=== PATIENT | female | born 1995 | race Caucasian/White ===

== ENCOUNTER 2020-12-30 04:00 | Inpatient (IN) ==
[2020-12-30] MEDS ORDERED: Metoclopramide 10 MG/2 ML VIAL IVP PRN (04:20)
[2020-12-30] MEDS ORDERED: Famotidine 20 MG/2 ML VIAL IVP PRN (04:20)
[2020-12-30] MEDS ORDERED: Ondansetron 4 MG/2 ML VIAL IVP PRN (04:20)
[2020-12-30] MEDS ORDERED: Naloxone 0.4 MG/ML INJ IVP PRN (04:20)
[2020-12-30] MEDS ORDERED: Lidocaine 1% 20 ML MDV INFILT PRN (04:20)
[2020-12-30] MEDS ORDERED: Oxytocin 20 units/ LR 1000 mL 20 UNIT/1,000 ML BAG IVC SCH (04:30)
[2020-12-30 05:01] LABS: Basophils % 0.2 %; Eosinophils # 0.1 K/mcL (0.0-0.6); Eosinophils % 0.6 %; Hematocrit 35.3 % (35.3-44.9); Immature Granulocytes % 0.7 % (0-4); Lymphocytes # 2.5 K/mcL (0.6-4.6); Lymphocytes % 18.9 %; Mean Corpuscular Hemoglobin 32.6 pg (28.0-33.3); Mean Corpuscular Volume 95.9 fL (83.0-100.0); Mean Platelet Volume 11.1 fL (9.4-12.4); Monocytes # 0.9 K/mcL (0.0-1.3); Monocytes % 6.9 %; Neutrophils # 9.8 K/mcL (1.6-8.9); Platelet Count 165 K/mcL (140-400); Red Blood Count 3.68 M/mcL (3.82-4.97); Red Cell Distribution Width 13.2 % (11.5-14.5); Segmented Neutrophils % 72.7 %; White Blood Count 13.4 K/mcL (4.3-11.1)
[2020-12-30 05:10] LABS: Amphetamine Screen,Urine Negative ng/mL (Cutoff=1000); Barbiturate Screen,Urine Negative ng/mL (Cutoff=200); Benzodiazepines Screen,Urine Negative ng/mL (Cutoff=200); Cannabinoid Screen,Urine Negative ng/mL (Cutoff = 50); Cocaine Screen,Urine Negative ng/mL (Cutoff= 300); Opiate Screen,Urine Negative ng/mL (Cutoff=300); Phencyclidine Screen,Urine Negative ng/mL (Cutoff=25)
[2020-12-30] MEDS ORDERED: Penicillin G Potassium 5,000,000 UNIT in 0.9 % Sodium Chloride Mini Bag 100 ML IVPB ONE (05:45)
[2020-12-30] MEDS: Ringers Solution, Lactated 1,000 ML IVC SCH ×2 (05:55→19:22)
[2020-12-30] MEDS ORDERED: *HR* FentaNYL (PF) 100 MCG/2 ML VIAL EP ONE (07:39)
[2020-12-30] MEDS ORDERED: Ropivacaine/PF 0.2% 20 ML VIAL EP ONE (07:39)
[2020-12-30] MEDS ORDERED: EPHEDrine 50 MG/ML VIAL IVP PRN (07:39)
[2020-12-30] MEDS ORDERED: *HR* FentaNYL (PF) 250 MCG/5 ML VIAL ONE (07:45)
[2020-12-30] MEDS ORDERED: Epidural Premix (fent/bupiv) 110 ML EP SCH (07:45)
[2020-12-30] MEDS: Penicillin G Potassium 2,500,000 UNIT/105 ML MLS IVPB SCH ×3 (10:07→19:21)
[2020-12-30] MEDS ORDERED: *HR* Nalbuphine 10 MG/ML AMPUL IV PRN (14:13)
[2020-12-30] MEDS ORDERED: *HR* Nalbuphine 10 MG/ML AMPUL ONE (14:18)
[2020-12-30] MEDS ORDERED: *HR* FentaNYL (PF) 100 MCG/2 ML VIAL ONE ×3 (20:00→22:22)
[2020-12-31] MEDS ORDERED: Acetaminophen 325 MG TABLET PO ONE (00:08)
[2020-12-31] MEDS ORDERED: Ropivacaine/PF 0.2% 20 ML VIAL ONE (00:52)
[2020-12-31] MEDS ORDERED: *HR* FentaNYL (PF) 100 MCG/2 ML VIAL ONE ×3 (00:52→07:38)
[2020-12-31] MEDS: Penicillin G Potassium 2,500,000 UNIT/105 ML MLS IVPB SCH (03:45)
[2020-12-31] MEDS ORDERED: Azithromycin 500 MG in 0.9 % Sodium Chloride 250 ML IVPB ONE ×2 (06:45→07:00)
[2020-12-31] MEDS ORDERED: Ondansetron 4 MG/2 ML VIAL ONE (06:48)
[2020-12-31] MEDS ORDERED: *HR* Morphine Sulfate/PF 10 MG/10 ML AMPUL ONE (06:48)
[2020-12-31] MEDS ORDERED: *HR* Phenylephrine 10 MG/ML VIAL ONE (06:48)
[2020-12-31] MEDS ORDERED: CeFAZolin 2,000MG/50ML DUPLEX 2,000 MG/50 ML BAG IVPB ONE (07:00)
[2020-12-31] MEDS ORDERED: Lidocaine/EPI 1:200k 2% PF 20 ML VIAL ONE (07:03)
[2020-12-31] MEDS ORDERED: Chloroprocaine/PF 20 ML VIAL INFILT ONE (07:03)
[2020-12-31] MEDS ORDERED: Acetaminophen IV 1,000 MG/100 ML BAG IVPB ONE (07:19)
[2020-12-31] MEDS ORDERED: *HR* Oxytocin 10 UNIT/ML VIAL IM ONE (07:28)
[2020-12-31] MEDS ORDERED: Ketamine *HR* 500 MG/10 ML MDV ONE (07:31)
[2020-12-31] MEDS ORDERED: Ringers Solution, Lactated 1,000 ML ONE (07:44)
[2020-12-31] MEDS ORDERED: Promethazine 6.25 MG in Water for inj. (sterile) 20 ML IVPB PRN (08:18)
[2020-12-31] MEDS ORDERED: *HR* HYDROmorphone PF 0.5 MG/0.5 ML SYRINGE IVP PRN (08:18)
[2020-12-31] MEDS ORDERED: Metoclopramide 10 MG/2 ML VIAL IVP PRN (10:32)
[2020-12-31] MEDS ORDERED: Rho Immune Globulin 1,500 UNIT SYRINGE IM ONE (10:32)
[2020-12-31] MEDS ORDERED: Ringers Solution, Lactated 1,000 ML IVC SCH (10:32)
[2020-12-31] MEDS ORDERED: NON-FORMULARY MEDICATION 1 EACH EACH (Prenatal Vits96/Iron Fum/Folic [Prenatal Tablet] 1 E PO SCH (10:32)
[2020-12-31] MEDS ORDERED: Simethicone 80 MG TAB.CHEW PO PRN (10:32)
[2020-12-31] MEDS ORDERED: Oxytocin 20 units/ LR 1000 mL 20 UNIT/1,000 ML BAG IVC SCH ×2 (10:32)
[2020-12-31] MEDS ORDERED: Ondansetron 4 MG/2 ML VIAL IVP PRN (10:32)
[2020-12-31] MEDS: Ibuprofen 600 MG TABLET PO SCH ×2 (12:15→17:54)
[2020-12-31] MEDS: Acetaminophen 325 MG TABLET PO SCH ×2 (12:16→17:54)
[2020-12-31] MEDS: Prenatal Vit/FA 1 EACH TABLET PO SCH (12:27)
[2020-12-31] MEDS ORDERED: Methylergonovine 0.2 MG/ML AMPUL IM ONE (15:03)
[2021-01-01] MEDS: Acetaminophen 325 MG TABLET PO SCH ×4 (00:07→18:54)
[2021-01-01] MEDS: Ibuprofen 600 MG TABLET PO SCH ×4 (00:07→18:53)
[2021-01-01 05:30] LABS: Basophils # 0.1 K/mcL (0.0-0.2); Basophils % 0.2 %; Eosinophils # 0.2 K/mcL (0.0-0.6); Eosinophils % 0.8 %; Hematocrit 29.2 % (35.3-44.9); Immature Granulocytes % 0.9 % (0-4); Lymphocytes # 3.1 K/mcL (0.6-4.6); Lymphocytes % 12.9 %; Mean Corpuscular HGB Conc 33.9 g/dL (31.6-35.5); Mean Corpuscular Hemoglobin 33.2 pg (28.0-33.3); Mean Platelet Volume 11.4 fL (9.4-12.4); Monocytes # 1.4 K/mcL (0.0-1.3); Monocytes % 5.7 %; Neutrophils # 18.9 K/mcL (1.6-8.9); Platelet Count 152 K/mcL (140-400); Red Blood Count 2.98 M/mcL (3.82-4.97); Red Cell Distribution Width 13.2 % (11.5-14.5); Segmented Neutrophils % 79.5 %
[2021-01-01 05:31] LABS: Hemoglobin 9.9 g/dL (11.5-15.4); White Blood Count 23.8 K/mcL (4.3-11.1)
[2021-01-01 05:57] VITALS: O2SAT 98
[2021-01-01] MEDS: Prenatal Vit/FA 1 EACH TABLET PO SCH (07:53)
[2021-01-01] MEDS: *HR* OxyCODONE Immed Rel 5 MG TABLET PO PRN (17:32)
[2021-01-01 19:34] VITALS: BP 125/79; PULSE 79; TEMP 97.9
[2021-01-02] MEDS: Ibuprofen 600 MG TABLET PO SCH ×3 (00:45→11:55)
[2021-01-02] MEDS: Acetaminophen 325 MG TABLET PO SCH ×3 (00:46→11:55)
[2021-01-02 03:50] LABS: Basophils % 0.2 %; Eosinophils # 0.2 K/mcL (0.0-0.6); Eosinophils % 1.3 %; Hematocrit 28.1 % (35.3-44.9); Hemoglobin 9.8 g/dL (11.5-15.4); Immature Granulocytes % 0.7 % (0-4); Lymphocytes # 2.9 K/mcL (0.6-4.6); Lymphocytes % 18.3 %; Mean Corpuscular HGB Conc 34.9 g/dL (31.6-35.5); Mean Corpuscular Hemoglobin 33.7 pg (28.0-33.3); Mean Corpuscular Volume 96.6 fL (83.0-100.0); Mean Platelet Volume 11.1 fL (9.4-12.4); Monocytes # 0.9 K/mcL (0.0-1.3); Monocytes % 5.4 %; Neutrophils # 11.7 K/mcL (1.6-8.9); Platelet Count 168 K/mcL (140-400); Red Blood Count 2.91 M/mcL (3.82-4.97); Red Cell Distribution Width 13.5 % (11.5-14.5); Segmented Neutrophils % 74.1 %; White Blood Count 15.9 K/mcL (4.3-11.1)
[2021-01-02] MEDS: *HR* OxyCODONE Immed Rel 5 MG TABLET PO PRN ×2 (06:20→11:55)
[2021-01-02] MEDS: Prenatal Vit/FA 1 EACH TABLET PO SCH (08:24)
== END 2021-01-02 15:04 | disposition home or self-care (01) | DRG 540 ==
LOC: 1NENULAB 04:05 → 1NENUOBS 12-31 10:21
PROVIDERS: ADMIT Student in an Organized Health Care Education/Training Program; ATTEND Student in an Organized Health Care Education/Training Program